=== PATIENT | female | born 1950 | race African-American/Black ===

== ENCOUNTER → 2020-04-30 | Outpatient (CLI) | payer OTHER ==
[2020-04-30 14:37] LABS: ABSOLUTE NEUTROPHILS 3.5 thou/uL (1.4-8.2); BASOPHILS 0.7 % (0.0-2.0); EOSINOPHILS 4.7 % (0.0-3.0); HEMATOCRIT 31.8 % (37.0-47.0); HEMOGLOBIN 10.4 gm/dL (12.0-15.0); LYMPHOCYTES 33.7 % (24.0-44.0); MCHC 32.7 g/dL (28.0-37.0); MCV 88.5 fL (80.0-100.0); MONOCYTES 7.9 % (1.0-8.0); PLATELET COUNT 310 thou/uL (150-400); RDW 13.7 % (10.5-14.5); WBC 6.6 thou/uL (4.0-11.0)
[2020-04-30 14:57] LABS: ALBUMIN 3.5 g/dL (3.4-5.0); ANION GAP 8 mmol/L (7-16); BUN 15 mg/dL (7-18); CALCIUM 9.1 mg/dL (8.5-10.1); CHLORIDE 106 mmol/L (98-107); CHOLESTEROL 174 mg/dL (<200); CO2 30 mmol/L (21-32); CREATININE 1.7 mg/dL (0.6-1.0); GLUCOSE 111 mg/dL (74-106); HDL CHOLESTEROL 53 mg/dL (>40); LDL CHOLESTEROL 96 mg/dL (<100); POTASSIUM 4.1 mmol/L (3.5-5.1); SGOT 27 U/L (15-37); SGPT 30 U/L (30-65); SODIUM 144 mmol/L (136-145); TC:HDL 3.3 Ratio (Not establshd); TOTAL BILIRUBIN 0.4 mg/dL (0.2-1.0); TOTAL PROTEIN 7.6 g/dL (6.4-8.2); TRIGLYCERIDE 125 mg/dL (<150); VLDL 25 mg/dL (<40)
[2020-05-01 05:07] LABS: GLYCOHEMOGLOBIN (HGB A1C) 7.1 % (4.8-5.6)
== END ==
LOC: LABMALL 14:05
PROVIDERS: ATTEND Nurse Practitioner
DX: E11.00 Type 2 diabetes mellitus with hyperosmolarity without nonketotic hyperglycemic-hyperosmolar coma (NKHHC) (principal); E78.49 Other hyperlipidemia; Z00.00 Encounter for general adult medical examination without abnormal findings

== ENCOUNTER → 2020-09-06 | Outpatient (CLI) | payer OTHER ==
[2020-09-06 17:38] LABS: ABSOLUTE NEUTROPHILS 3.7 thou/uL (1.4-8.2); BASOPHILS 0.7 % (0.0-2.0); EOSINOPHILS 4.8 % (0.0-3.0); HEMATOCRIT 30.7 % (37.0-47.0); HEMOGLOBIN 9.8 gm/dL (12.0-15.0); LYMPHOCYTES 33.9 % (24.0-44.0); MCH 27.9 pg (26.0-34.0); MONOCYTES 8.3 % (1.0-8.0); PLATELET COUNT 328 thou/uL (150-400); POLYS 52.3 % (36.0-66.0); RBC 3.53 mil/uL (4.20-5.00); RDW 14.6 % (10.5-14.5); WBC 7.1 thou/uL (4.0-11.0)
[2020-09-06 17:54] LABS: ALBUMIN 3.5 g/dL (3.4-5.0); ANION GAP 12 mmol/L (7-16); BUN 18 mg/dL (7-18); CALCIUM 9.2 mg/dL (8.5-10.1); CHLORIDE 106 mmol/L (98-107); CHOLESTEROL 177 mg/dL (<200); CO2 27 mmol/L (21-32); CREATININE 1.9 mg/dL (0.6-1.0); GLUCOSE 101 mg/dL (74-106); HDL CHOLESTEROL 54 mg/dL (>40); LDL CHOLESTEROL 101 mg/dL (<100); SGOT 17 U/L (15-37); SGPT 26 U/L (30-65); SODIUM 145 mmol/L (136-145); TC:HDL 3.3 Ratio (Not establshd); TOTAL BILIRUBIN 0.3 mg/dL (0.2-1.0); TOTAL PROTEIN 7.3 g/dL (6.4-8.2); TRIGLYCERIDE 111 mg/dL (<150); VLDL 22 mg/dL (<40)
[2020-09-08 11:35] LABS: % SATURATION 10 % (20-39); IRON 29 ug/dL (50-170); TIBC 286 ug/dL (250-450)
== END ==
LOC: LAB 14:46
PROVIDERS: ATTEND Nurse Practitioner
DX: E11.10 Type 2 diabetes mellitus with ketoacidosis without coma (principal); E78.49 Other hyperlipidemia; I10 Essential (primary) hypertension; R60.0 Localized edema

== ENCOUNTER → 2020-09-17 | Outpatient (CLI) | payer OTHER | LOC: SJCVCIMAG 13:14 | PROVIDERS: ATTEND Internal Medicine | DX: I65.23 Occlusion and stenosis of bilateral carotid arteries (principal); Z87.891 Personal history of nicotine dependence ==

== ENCOUNTER → 2020-10-01 | Outpatient (CLI) | payer OTHER | LOC: SJCVCIMAG 07:34 | PROVIDERS: ATTEND Internal Medicine | DX: I07.1 Rheumatic tricuspid insufficiency (principal); I11.9 Hypertensive heart disease without heart failure; R00.0 Tachycardia, unspecified; E11.8 Type 2 diabetes mellitus with unspecified complications; E11.00 Type 2 diabetes mellitus with hyperosmolarity without nonketotic hyperglycemic-hyperosmolar coma (NKHHC); Z79.899 Other long term (current) drug therapy; Z87.891 Personal history of nicotine dependence; Z87.42 Personal history of other diseases of the female genital tract ==

== ENCOUNTER → 2020-10-18 | Outpatient (CLI) | payer OTHER ==
[2020-10-18 14:32] LABS: ABSOLUTE NEUTROPHILS 2.8 thou/uL (1.4-8.2); BASOPHILS 0.6 % (0.0-2.0); EOSINOPHILS 5.7 % (0.0-3.0); HEMATOCRIT 29.7 % (37.0-47.0); HEMOGLOBIN 9.5 gm/dL (12.0-15.0); LYMPHOCYTES 36.2 % (24.0-44.0); MCHC 32.2 g/dL (28.0-37.0); MCV 87.1 fL (80.0-100.0); MONOCYTES 9.9 % (1.0-8.0); PLATELET COUNT 308 thou/uL (150-400); POLYS 47.6 % (36.0-66.0); RBC 3.41 mil/uL (4.20-5.00); RDW 14.1 % (10.5-14.5); WBC 5.9 thou/uL (4.0-11.0)
== END ==
LOC: LAB 13:48
PROVIDERS: ATTEND Nurse Practitioner
DX: D64.9 Anemia, unspecified (principal)

== ENCOUNTER → 2020-10-29 | Outpatient (CLI) | payer OTHER | LOC: SJCVCIMAG 10-04 15:55 | PROVIDERS: ATTEND Internal Medicine | DX: M79.661 Pain in right lower leg (principal); M79.662 Pain in left lower leg; R60.0 Localized edema; R09.89 Other specified symptoms and signs involving the circulatory and respiratory systems; E11.9 Type 2 diabetes mellitus without complications; I10 Essential (primary) hypertension; E78.00 Pure hypercholesterolemia, unspecified; Z87.891 Personal history of nicotine dependence; Z79.84 Long term (current) use of oral hypoglycemic drugs; Z79.899 Other long term (current) drug therapy ==

== ENCOUNTER → 2020-11-26 | Outpatient (CLI) | payer OTHER ==
[2020-11-26 15:22] LABS: CREATININE 1.8 mg/dL (0.6-1.0); POTASSIUM 4.1 mmol/L (3.5-5.1)
== END ==
LOC: LAB 14:11
PROVIDERS: ATTEND Internal Medicine
DX: R60.0 Localized edema (principal); I10 Essential (primary) hypertension

== ENCOUNTER → 2020-12-24 | Outpatient (CLI) | payer OTHER ==
[2020-12-24 13:55] LABS: CALCIUM 8.8 mg/dL (8.5-10.1); CREATININE 1.7 mg/dL (0.6-1.0)
== END ==
LOC: LAB 13:25
PROVIDERS: ATTEND Internal Medicine
DX: E11.00 Type 2 diabetes mellitus with hyperosmolarity without nonketotic hyperglycemic-hyperosmolar coma (NKHHC) (principal); I10 Essential (primary) hypertension

== ENCOUNTER → 2021-05-13 | Outpatient (CLI) | payer OTHER ==
[2021-05-13 14:12] LABS: ABSOLUTE NEUTROPHILS 3.3 thou/uL (1.4-8.2); BASOPHILS 0.7 % (0.0-2.0); HEMATOCRIT 32.7 % (37.0-47.0); HEMOGLOBIN 10.4 gm/dL (12.0-15.0); LYMPHOCYTES 36.4 % (24.0-44.0); MCH 27.8 pg (26.0-34.0); MCHC 31.7 g/dL (28.0-37.0); MCV 87.7 fL (80.0-100.0); MONOCYTES 8.6 % (1.0-8.0); PLATELET COUNT 319 thou/uL (150-400); POLYS 50.3 % (36.0-66.0); RBC 3.73 mil/uL (4.20-5.00); RDW 14.3 % (10.5-14.5); WBC 6.6 thou/uL (4.0-11.0)
[2021-05-13 14:28] LABS: ALBUMIN 3.4 g/dL (3.4-5.0); CREATININE 1.5 mg/dL (0.6-1.0); POTASSIUM 3.8 mmol/L (3.5-5.1); TOTAL BILIRUBIN 0.3 mg/dL (0.2-1.0)
== END ==
LOC: LAB 13:31
PROVIDERS: ATTEND Nurse Practitioner
DX: E11.00 Type 2 diabetes mellitus with hyperosmolarity without nonketotic hyperglycemic-hyperosmolar coma (NKHHC) (principal)

== ENCOUNTER → 2021-05-27 | Outpatient (CLI) | payer OTHER ==
[2021-05-27 16:29] LABS: CALCIUM 9.1 mg/dL (8.5-10.1); CREATININE 1.6 mg/dL (0.6-1.0); POTASSIUM 4.2 mmol/L (3.5-5.1)
== END ==
LOC: LAB 14:03
PROVIDERS: ATTEND Internal Medicine
DX: I10 Essential (primary) hypertension (principal); E11.00 Type 2 diabetes mellitus with hyperosmolarity without nonketotic hyperglycemic-hyperosmolar coma (NKHHC)

== ENCOUNTER → 2021-06-10 | Outpatient (CLI) | payer OTHER ==
[2021-06-10 15:20] LABS: CREATININE 1.7 mg/dL (0.6-1.0); POTASSIUM 4.3 mmol/L (3.5-5.1)
== END ==
LOC: LAB 13:37
PROVIDERS: ATTEND Internal Medicine
DX: I10 Essential (primary) hypertension (principal)

== ENCOUNTER → 2021-07-08 | Outpatient (CLI) | payer OTHER ==
[2021-07-08 15:20] LABS: CREATININE 1.8 mg/dL (0.6-1.0); POTASSIUM 4.3 mmol/L (3.5-5.1)
== END ==
LOC: LAB 13:49
PROVIDERS: ATTEND Internal Medicine
DX: I10 Essential (primary) hypertension (principal)

== ENCOUNTER → 2021-09-19 | Outpatient (CLI) | payer OTHER ==
[2021-09-19 12:45] LABS: ABSOLUTE NEUTROPHILS 3.3 thou/uL (1.4-8.2); BASOPHILS 0.8 % (0.0-2.0); HEMOGLOBIN 10.6 gm/dL (12.0-15.0); LYMPHOCYTES 33.7 % (24.0-44.0); MCH 28.5 pg (26.0-34.0); MCHC 32.2 g/dL (28.0-37.0); MCV 88.6 fL (80.0-100.0); MONOCYTES 8.1 % (1.0-8.0); PLATELET COUNT 298 thou/uL (150-400); POLYS 52.4 % (36.0-66.0); RBC 3.72 mil/uL (4.20-5.00); RDW 14.5 % (10.5-14.5); WBC 6.3 thou/uL (4.0-11.0)
[2021-09-19 13:02] LABS: ALBUMIN 3.5 g/dL (3.4-5.0); ANION GAP 6 mmol/L (7-16); BUN 20 mg/dL (7-18); CALCIUM 8.8 mg/dL (8.5-10.1); CHLORIDE 103 mmol/L (98-107); CHOLESTEROL 162 mg/dL (<200); CO2 33 mmol/L (21-32); CREATININE 1.6 mg/dL (0.6-1.0); GLUCOSE 123 mg/dL (74-106); HDL CHOLESTEROL 56 mg/dL (>40); LDL CHOLESTEROL 91 mg/dL (<100); SGOT 20 U/L (15-37); SGPT 24 U/L (30-65); SODIUM 142 mmol/L (136-145); TC:HDL 2.9 Ratio (Not establshd); TOTAL BILIRUBIN 0.4 mg/dL (0.2-1.0); TOTAL PROTEIN 7.6 g/dL (6.4-8.2); TRIGLYCERIDE 76 mg/dL (<150); VLDL 15 mg/dL (<40)
[2021-09-20 07:08] LABS: GLYCOHEMOGLOBIN (HGB A1C) 6.7 % (4.8-5.6)
== END ==
LOC: LAB 11:15
PROVIDERS: ATTEND Family Medicine
DX: E11.00 Type 2 diabetes mellitus with hyperosmolarity without nonketotic hyperglycemic-hyperosmolar coma (NKHHC) (principal); E78.49 Other hyperlipidemia